=== PATIENT | male | born 1985 | race Caucasian/White ===

== ENCOUNTER → 2016-06-01 | Outpatient (CLI) | payer OTHER | LOC: RAD 16:11 | PROVIDERS: ATTEND Specialist | DX: G43.009 Migraine without aura, not intractable, without status migrainosus (principal) | CPT/HCPCS: 70450 ==

== ENCOUNTER → 2016-08-04 | Outpatient (CLI) | payer OTHER ==
[2016-08-04 12:36] LABS: ADD HIVPANEL? NO; HIV (1 AND 2) ANTIBODY NEGATIVE (NEGATIVE)
[2016-08-05 10:38] LABS: HEPATITIS C VIRUS AB <0.1 s/co ratio (0.0-0.9)
== END ==
LOC: OD 10:33
PROVIDERS: ATTEND Internal Medicine
DX: Z11.4 Encounter for screening for human immunodeficiency virus [HIV] (principal); Z13.9 Encounter for screening, unspecified
CPT/HCPCS: 36415; 86317; 86701; 86803; 86804

== ENCOUNTER 2019-11-17 17:39 | Emergency (ER) | payer OTHER ==
[2019-11-17] MEDS ORDERED: KETOROLAC TROMETHAMINE INJ/PF 30 MG/1 ML SDV IV ONE (18:58)
[2019-11-17] MEDS ORDERED: PROCHLORPERAZINE EDISYLATE INJ 10 MG/2 ML VIAL IV ONE (18:58)
[2019-11-17] MEDS ORDERED: DIPHENHYDRAMINE HCL 50 MG/ML VIAL IV ONE (18:58)
[2019-11-17] MEDS ORDERED: NORMAL SALINE 1000 ML 1,000 ML IV ONE (18:58)
[2019-11-17 20:13] LABS: ABSOLUTE EOSINOPHILS # (AUTO) 0.1 10^3/uL (0.0-0.6); ABSOLUTE MONOCYTES (AUTO) 0.2 10^3/uL (0.1-1.4); ABSOLUTE NEUT (AUTO) 3.8 10^3/uL (1.7-8.2); BASOPHILS % (AUTO) 0.6 % (0-2); HEMATOCRIT 37.9 % (37.9-51.0); HEMOGLOBIN 13.5 g/dL (13.5-17.0); LYMPHOCYTES % (AUTO) 19.4 % (13-45); MEAN CORPUSCULAR HGB CONC 35.6 g/dL (32.0-36.0); MEAN CORPUSCULAR VOLUME 93 fl (80-97); MONOCYTES % (AUTO) 3.7 % (3-13); PLATELET COUNT 197 10^3/uL (150-450); RED BLOOD COUNT 4.09 10^6/uL (4.35-5.55); RED CELL DISTRIBUTION WIDTH 13.8 % (11.5-14.0); SEGMENTED NEUTROPHILS % (AUTO) 74.3 % (42-78); TOTAL CELLS COUNTED % (AUTO) 100 %; WHITE BLOOD COUNT 5.1 10^3/uL (4.0-10.5)
[2019-11-17 20:20] LABS: ALKALINE PHOSPHATASE 51 U/L (38-126); ASPARTATE AMINO TRANSFERASE 22 U/L (17-59); BILIRUBIN,TOTAL 0.3 mg/dL (0.2-1.3); BLOOD UREA NITROGEN 18 mg/dL (7-20); CALCIUM 8.9 mg/dL (8.4-10.2); CHLORIDE 105 mmol/L (98-107); GLUCOSE 93 mg/dL (75-110); POTASSIUM 4.6 mmol/L (3.6-5.0); TOTAL PROTEIN 6.7 g/dL (6.3-8.2)
--- NOTE | 2019-11-17 20:28 | RADIOLOGY REPORT (SQ) ---
CT HEAD WITHOUT IV CONTRAST CLINICAL STATEMENT: Headache TECHNIQUE: Axial CT images from skull base to vertex without IV contrast. This exam was performed according to our departmental dose optimization program, and includes the following measures where applicable: automated exposure control, adjustment of the mAs and/or kVp according to patient size and/or exam, and an iterative reconstruction algorithm. COMPARISON: Unenhanced CT scan of the brain 06/01/2016 FINDINGS: There is no acute intracranial hemorrhage, mass, mass effect or abnormal extra-axial fluid collection. No evidence of an acute territorial infarct is identified. The ventricles are normal. Calvaria: The skull base and calvaria demonstrate no abnormality. Paranasal sinuses: Paranasal sinuses have minimal mucosal thickening. Overall aeration has significantly improved. On the previous examination there is multifocal opacification. skull base: Unremarkable IMPRESSION: 1. No intracranial hemorrhage or mass lesion. 2. Resolution of previously noted paranasal sinusitis.
[2019-11-17 20:30] LABS: ANION GAP 5 (5-19); CARBON DIOXIDE 28 mmol/L (22-30)
--- NOTE | 2019-11-17 20:58 | ER Document Report ---
ED Headache - General Chief Complaint: Headache Stated Complaint: HEADACHE/NAUSEA/DIARRHEA/VOMITING Time Seen by Provider: 11/17/19 18:44 Mode of Arrival: Ambulatory Information source: Patient, [facility] Records Notes: This 34-year-old male patient comes emergency room complaining of headache above his right ear. He states he woke up yesterday morning with the headache. The headache is mostly a dull headache at the top of the head that alternates with the area above the right ear. When the right supra auricle region is hurting, it is a sharp stabbing pain that lasts for 30 to 45 seconds. He does report that last night his gave him some Motrin, Toradol, and oxycodone. He does take several psychiatric medications which he states are for anxiety and depression. He does have a history of migraine headache a couple of times a couple years ago. TRAVEL OUTSIDE OF THE [place] IN LAST 30 DAYS: No - Related Data Allergies/Adverse Reactions: No Known Allergies Allergy (Verified 11/17/19 18:49) Home Medications: pt. arrived today via personal vehicle, C/O headache starting last night. Pt. stated that pain coming about every 30 secs, feels like he is being shocked. Dull headache, and blurred vision. Pt. is A & O x4, NAD at this time. Past Medical History - General Information source: Patient, [facility] Records - Social History Smoking Status: Never Smoker Cigarette use (# per day): No Chew tobacco use (# tins/day): No Smoking Education Provided: No Frequency of alcohol use: None Drug Abuse: None Lives with: Spouse/Significant other Family History: Reviewed & Not Pertinent Patient has homicidal ideation: No - Medical History Medical History: Negative Psychiatric Medical History: Reports: Hx Anxiety, Hx Depression Denies: Hx Bipolar Disorder Surgical Hx: Negative - Immunizations Hx Diphtheria, Pertussis, Tetanus Vaccination: No - Patient is unsure Review of Systems - Review of Systems Constitutional: No symptoms reported EENT: No symptoms reported Cardiovascular: No symptoms reported Respiratory: No symptoms reported Gastrointestinal: No symptoms reported Genitourinary: No symptoms reported Musculoskeletal: No symptoms reported Skin: No symptoms reported Hematologic/Lymphatic: No symptoms reported Neurological/Psychological: See HPI Physical Exam - Vital signs Vitals: Temp 98.8 F 11/17/19 17:40 Interpretation: Normal - General General appearance: Appears well, Alert In distress: None - HEENT Head: Normocephalic, Atraumatic. No: Tenderness - There is no tenderness to palpate the top of the head, the forehead muscles, temporal muscles, or above the ears where he gets the sharp pain on the right. Eyes: Normal Pupils: PERRL Ears: Normal External canal: Normal Neck: Normal - Respiratory Respiratory status: No respiratory distress Breath sounds: Normal - Cardiovascular Rhythm: Regular Heart sounds: Normal auscultation Murmur: No - Abdominal Inspection: Normal - Back Back: Normal - Extremities General upper extremity: Normal inspection General lower extremity: Normal inspection - Neurological Neuro grossly intact: Yes - Psychological Associated symptoms: Normal affect, Normal mood - Skin Skin Temperature: Warm Skin Moisture: Dry Skin Color: Normal Course - Re-evaluation Re-evalutation: 11/17/19 20:35 The patient received the medications about 1 hour ago. When I went in to see him, he was sound asleep and snoring and had to be shaken a bit before he woke up. When asked about his headache, he stated it was still there. He was advised that he will need to follow-up with his primary care provider for further evaluation of his headaches. - Vital Signs Vital signs: Temp Pulse Resp BP Pulse Ox 98.8 F 11/17/19 19:19 - Laboratory Result Diagrams: 11/17/19 18:59 11/17/19 18:59 Laboratory results interpreted by me: 11/17/19 18:59 RBC 4.09 L - Diagnostic Test Radiology reviewed: Image reviewed, Reports reviewed - CT scan of the head today shows no abnormalities. There was paranasal sinus disease on a CT scan 3 years ago which has cleared at this time. Discharge - Discharge Clinical Impression: Headache Qualifiers: Headache type: unspecified Headache chronicity pattern: unspecified pattern Intractability: not intractable Qualified Code(s): R51 - Headache Condition: Stable Disposition: HOME, SELF-CARE Additional Instructions: Headache: The physician does not feel that the headache you are experiencing has a serious underlying cause. Occasionally, headaches are secondary to changes in the blood vessels of the scalp (vascular headache and migraine headache). Sometimes, a headache is the first symptom of another developing illness, such as a viral infection. You have no evidence of stroke, bleeding, meningitis, or other serious cause of your headache. The treatment of headaches varies with the severity and cause of the pain. Not all headaches need pain shots. In fact, there is evidence that using narcotics for headaches may make them worse in the long run. The physician will determine the therapy that's in your best interest. If you develop a fever, if the headache is different from any you've previously experienced, or if the headache progressively worsens, then call your physician at once or go to the emergency room. Follow-up with your primary care provider tomorrow for further evaluation of your headaches if they do not improve. RETURN TO THE EMERGENCY ROOM IF ANY NEW OR WORSENING SYMPTOMS.
[2019-11-17 21:56] VITALS: BP 118/55
== END 2019-11-17 21:56 | disposition home or self-care (01) ==
LOC: ER 17:39
DX: R51 Headache (principal); R11.2 Nausea with vomiting, unspecified; R19.7 Diarrhea, unspecified
CPT/HCPCS: 99284; 96361; 96374; 96375; 36415; 85025; 80053; 70450; J1200; J1885; J0780; J7030